=== PATIENT | male | born 2005 | race Hispanic/Latino ===

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

== ENCOUNTER → 2025-04-30 08:22 | Outpatient (REF) | payer BC, SELFPAY | LOC: RAD 08:22 | PROVIDERS: ATTENDING PHYSICIAN Internal Medicine | DX: R10.11 Right upper quadrant pain (principal) | CPT/HCPCS: 76700 ==